=== PATIENT | male | born 1955 | race Two or more races ===

== ENCOUNTER → 2021-12-08 | Outpatient (CLI) | payer MEDICAID | END | disposition left against medical advice (07) | LOC: EMS 14:49 | DX: R11.2 Nausea with vomiting, unspecified (principal); Z99.2 Dependence on renal dialysis ==

== ENCOUNTER 2022-01-09 10:43 | Outpatient (CLI) | payer MEDICAID | END 2022-01-09 10:44 | disposition EMS.NT | LOC: EMS 10:43 | DX: R55 Syncope and collapse (principal); I95.9 Hypotension, unspecified ==

== ENCOUNTER 2022-05-06 14:27 | Outpatient (CLI) | payer MEDICAID | END 2022-05-06 14:28 | disposition critical access hospital (66) | LOC: EMS 14:27 | DX: R55 Syncope and collapse (principal); R25.2 Cramp and spasm; Z99.2 Dependence on renal dialysis | CPT/HCPCS: A0425; A0429; A0999 ==

== ENCOUNTER 2022-05-06 15:08 | Emergency (ER) | payer MEDICAID ==
--- NOTE | 2022-05-06 15:15 | ED Physician Documentation ---
PD HPI SYNCOPE - Stated complaint Stated Complaint: SNYCOPE - History obtained from History obtained from: Patient, EMS - Additional information Additional information: 67 yo male with ESRD and DM was at dialysis today and had brief syncope. He was given 800ml ofIVF after that. No associated chest pain, dyspnea. Feels fine now. Neg orthostatics for EMS p IVF given at dialysis. [employer] for EMs in the 90s. Review of Systems Ten Systems: 10 systems reviewed and negative Constitutional: reports: Reviewed and negative Cardiac: reports: Reviewed and negative Respiratory: reports: Reviewed and negative PD PAST MEDICAL HISTORY - Allergies Allergies/Adverse Reactions: Allergies Allergy/AdvReac Type Severity Reaction Status Date / Time No Known Drug Allergies Allergy Verified 05/06/22 15:25 PD ED PE NORMAL - Vitals Vital signs reviewed: Yes - General General: Alert and oriented X 3, No acute distress - HEENT HEENT: PERRL, EOMI - Neck Neck: Supple, no meningeal sign, No bony TTP - Cardiac Cardiac: RRR, No murmur, Other (Tunnelled 2-lumen dialysis cath right upper chest wall) - Respiratory Respiratory: No respiratory distress, Clear bilaterally - Abdomen Abdomen: Non tender - Derm Derm: Normal color, Warm and dry - Extremities Extremities: No edema, No calf tenderness / cord - Neuro Neuro: Alert and oriented X 3, Normal speech Results - Vitals Vitals: Vital Signs - 24 hr 05/06/22 05/06/22 15:21 15:47 Temperature 37.0 C 37.0 C Heart Rate 84 84 Respiratory 16 16 Rate Blood Pressure 144/78 H 144/78 H O2 Saturation 100 100 Oxygen O2 Source Room air - EKG (time done) 1615 Rate: Rate (enter#) (88) Rhythm: NSR [place]: Normal Intervals: Prolonged CO QRS: Normal Ischemia: Non specific changes Compare to prior EKG: Old EKG unavailable - Labs Labs: Laboratory Tests 05/06/22 05/06/22 15:22 15:22 WBC 4.4 L RBC 3.56 L Hgb 10.9 L Hct 32.0 L MCV 89.9 MCH 30.6 MCHC 34.1 RDW 13.3 Plt Count 150 MPV 8.6 Neut # (Auto) 2.5 Lymph # (Auto) 1.2 L [place] # (Auto) 0.5 Eos # (Auto) 0.1 Baso # (Auto) 0.0 Absolute Nucleated RBC 0.00 Nucleated RBC % 0.0 Sodium 131 L Potassium 3.5 Chloride 89 L Carbon Dioxide 31 Anion Gap 11.0 BUN 20 Creatinine 3.6 H Estimated GFR (MDRD) 17 L Glucose 104 H Calcium 8.7 PD MEDICAL DECISION MAKING - ED course ED course: 67 yo male with ESRD with syncope at dialysis. Looks like it happens frequently as EMS runsheets show. Neg w/u here. Departure - Departure Disposition: Home, Self Care Clinical Impression: ESRD (end stage renal disease) Syncope Qualifiers: Syncope type: unspecified Qualified Code(s): R55 - Syncope and collapse Condition: Good Record reviewed to determine appropriate education?: Yes Instructions: ED Fainting Unkn Cause Comments: Dialysis Wednesday as routine. Return as needed for any new or worse symptoms.
[2022-05-06 15:27] LABS: BASOPHILS % (AUTO) 0.7 %; EOSINOPHILS # (AUTO) 0.1 10^3/uL (0.0-0.7); EOSINOPHILS % (AUTO) 2.5 %; HGB - HEMOGLOBIN 10.9 g/dL (14.0-18.0); LYMPHOCYTES # (AUTO) 1.2 10^3/uL (1.5-3.5); LYMPHOCYTES % (AUTO) 28.2 %; MEAN CORPUSCULAR HEMOGLOBIN 30.6 pg (27.0-31.0); MEAN CORPUSCULAR HGB CONC 34.1 g/dL (32.0-36.0); MEAN CORPUSCULAR VOLUME 89.9 fL (80.0-94.0); MEAN PLATELET VOLUME 8.6 fL (7.4-11.4); MONOCYTES # (AUTO) 0.5 10^3/uL (0.0-1.0); MONOCYTES % (AUTO) 11.2 %; NEUTROPHILS # (AUTO) 2.5 10^3/uL (1.5-6.6); NEUTROPHILS % (AUTO) 57.2 %; PLT - PLATELET COUNT 150 10^3/uL (130-450); RED BLOOD COUNT 3.56 10^6/uL (4.70-6.10); RED CELL DISTRIBUTION WIDTH 13.3 % (12.0-15.0); WHITE BLOOD COUNT 4.4 x10^3/uL (4.8-10.8)
[2022-05-06 15:31] VITALS: BP 144/78
[2022-05-06 15:38] LABS: CALCIUM 8.7 mg/dL (8.5-10.3); CREATININE 3.6 mg/dL (0.6-1.2); POTASSIUM 3.5 mmol/L (3.5-5.0)
== END 2022-05-06 18:55 | disposition home or self-care (01) ==
LOC: EDUNIT# → ED 15:08
DX: R55 Syncope and collapse (principal); E11.22 Type 2 diabetes mellitus with diabetic chronic kidney disease; N18.6 End stage renal disease; Z99.2 Dependence on renal dialysis
CPT/HCPCS: 36415; 80048; 85025; 93005; 99282; 99284

== ENCOUNTER 2022-08-14 16:43 | Outpatient (CLI) | payer MEDICAID | END 2022-08-14 23:59 | disposition short-term general hospital (02) | LOC: EMS 16:43 | DX: R55 Syncope and collapse (principal); I95.9 Hypotension, unspecified; Z99.2 Dependence on renal dialysis | CPT/HCPCS: A0425; A0427; A0999 ==

== ENCOUNTER 2022-09-23 08:26 | Outpatient (CLI) | payer MEDICAID | END 2022-09-23 23:59 | disposition short-term general hospital (02) | LOC: EMS 08:26 | DX: R06.02 Shortness of breath (principal); R05.9 Cough, unspecified; R53.83 Other fatigue; R00.0 Tachycardia, unspecified; R07.9 Chest pain, unspecified; I10 Essential (primary) hypertension; Z99.2 Dependence on renal dialysis | CPT/HCPCS: A0425; A0427; A0999 ==

== ENCOUNTER 2022-10-02 17:27 | Outpatient (CLI) | payer MEDICAID | END 2022-10-02 23:59 | disposition short-term general hospital (02) | LOC: EMS 17:27 | DX: M25.552 Pain in left hip (principal); R53.1 Weakness; W18.30XA Fall on same level, unspecified, initial encounter; Y92.009 Unspecified place in unspecified non-institutional (private) residence as the place of occurrence of the external cause; Z99.2 Dependence on renal dialysis | CPT/HCPCS: A0425; A0429; A0999 ==

== ENCOUNTER 2022-10-16 08:00 | Outpatient (CLI) | payer MEDICAID ==
[2022-10-16 21:29] LABS: ESTIMATED AVERAGE GLUCOSE 128 mg/dL (70-100); HEMOGLOBIN A1c% 6.1 % (4.27-6.07)
== END 2022-10-16 23:59 | disposition home or self-care (01) ==
LOC: LAB.R 08:00
PROVIDERS: ATTEND Family Medicine
DX: E11.42 Type 2 diabetes mellitus with diabetic polyneuropathy (principal)
CPT/HCPCS: 83036

== ENCOUNTER 2023-04-18 22:14 | Outpatient (CLI) | payer MEDICAID | END 2023-04-18 23:59 | disposition short-term general hospital (02) | LOC: EMS 22:14 | DX: R06.02 Shortness of breath (principal); R07.9 Chest pain, unspecified; R53.81 Other malaise; Z99.2 Dependence on renal dialysis | CPT/HCPCS: A0425; A0427; A0999 ==

== ENCOUNTER 2023-04-19 16:45 | Outpatient (CLI) | payer MEDICAID | END 2023-04-19 23:59 | disposition short-term general hospital (02) | LOC: EMS 16:45 | DX: R55 Syncope and collapse (principal); R41.0 Disorientation, unspecified; I49.9 Cardiac arrhythmia, unspecified; Z99.2 Dependence on renal dialysis | CPT/HCPCS: A0425; A0429; A0999 ==

== ENCOUNTER 2023-06-02 10:35 | Outpatient (CLI) | payer MEDICAID | END 2023-06-02 10:36 | disposition EMS.NT | LOC: EMS 10:35 | DX: G89.18 Other acute postprocedural pain (principal) ==

== ENCOUNTER 2023-06-08 08:22 | Outpatient (CLI) | payer MEDICAID ==
[2023-06-08 12:08] LABS: ABSOLUTE RETICS # AUTO 0.066 10^6/uL (0.020-0.110); BASOPHILS # (AUTO) 0.1 10^3/uL (0.0-0.1); BASOPHILS % (AUTO) 1.4 %; EOSINOPHILS # (AUTO) 0.2 10^3/uL (0.0-0.7); EOSINOPHILS % (AUTO) 3.1 %; HCT - HEMATOCRIT 28.6 % (42.0-52.0); HGB - HEMOGLOBIN 9.3 g/dL (14.0-18.0); LYMPHOCYTES % (AUTO) 20.3 %; MEAN CORPUSCULAR HEMOGLOBIN 32.5 pg (27.0-31.0); MEAN CORPUSCULAR HGB CONC 32.5 g/dL (32.0-36.0); MEAN PLATELET VOLUME 10.1 fL (7.4-11.4); MONOCYTES # (AUTO) 0.6 10^3/uL (0.0-1.0); MONOCYTES % (AUTO) 12.6 %; NEUTROPHILS # (AUTO) 3.2 10^3/uL (1.5-6.6); NEUTROPHILS % (AUTO) 62.4 %; PLT - PLATELET COUNT 201 10^3/uL (130-450); RED BLOOD COUNT 2.86 10^6/uL (4.70-6.10); RED CELL DISTRIBUTION WIDTH 15.3 % (12.0-15.0); RETICULOCYTE COUNT % (AUTO) 2.32 % (0.5-2.3); WHITE BLOOD COUNT 5.1 x10^3/uL (4.8-10.8)
[2023-06-08 12:18] LABS: ALBUMIN 4.1 g/dL (3.2-5.5)
[2023-06-08 12:48] LABS: CREATININE 7.1 mg/dL (0.6-1.3)
[2023-06-08 12:49] LABS: ALBUMIN/GLOBULIN RATIO 1.4 (1.0-2.2); BILIRUBIN,TOTAL 0.8 mg/dL (0.2-1.0); CALCIUM 9.5 mg/dL (8.5-10.3); POTASSIUM 4.3 mmol/L (3.5-4.5)
== END 2023-06-08 08:23 | disposition home or self-care (01) ==
LOC: LAB.N 08:22
PROVIDERS: ATTEND Naturopath
DX: E11.9 Type 2 diabetes mellitus without complications (principal); S82.402B Unspecified fracture of shaft of left fibula, initial encounter for open fracture type I or II; S82.202B Unspecified fracture of shaft of left tibia, initial encounter for open fracture type I or II
CPT/HCPCS: 36415; 80053; 85025; 85045

== ENCOUNTER 2023-09-29 09:21 | Outpatient (CLI) | payer MEDICAID | END 2023-09-29 23:59 | disposition short-term general hospital (02) | LOC: EMS 09:21 | PROVIDERS: ATTEND Internal Medicine Cardiovascular Disease | DX: R06.02 Shortness of breath (principal); R05.9 Cough, unspecified; R07.89 Other chest pain; Z99.2 Dependence on renal dialysis | CPT/HCPCS: A0425; A0429; A0999 ==